=== PATIENT | female | born 1970 | race Caucasian/White ===

== ENCOUNTER 2017-09-11 14:54 | Outpatient (CLI) | payer BC ==
--- NOTE | 2017-09-17 15:27 | MMO ---
BILATERAL DIGITAL SCREENING MAMMOGRAMS: Date: 09/11/17 HISTORY: 47-year-old female presents for digital screening mammogram. COMPARISON: 07/31/16, 07/26/15, 04/01/14. FINDINGS: This patient's mammogram was interpreted with the assistance of computer-aided detection. The breasts are heterogeneously dense, which can obscure small masses. Stable typically benign calcif ications. No direct or indirect evidence of malignancy. IMPRESSION: BIRADS 2: Benign Finding(s) Continue routine screening. POS: LEON
== END 2017-09-11 14:55 | disposition home or self-care (01) ==
LOC: MAMMO 14:54
PROVIDERS: ATTEND Family Medicine
DX: Z12.31 Encounter for screening mammogram for malignant neoplasm of breast (principal)
CPT/HCPCS: 77067; G0202

== ENCOUNTER 2018-10-03 14:50 | Outpatient (CLI) | payer BC ==
--- NOTE | 2018-10-03 19:43 | ULT ---
LEFT BREAST ULTRASOUND: 10/03/18 HISTORY: Possible focal asymmetry in the left breast, only appreciated in the MLO projection, deep at the mid level of the breast. TECHNIQUE: Targeted sonographic imaging of the left breast is performed from the 2 to 4 o'clock position. Addit ional imaging was also performed in the presence of the radiologist at the 12 and 6 o'clock position. Real time and static images demonstrate normal fibroglandular tissue. No evidence of an irregular mas s, shadowing or distortion. IMPRESSION: BIRADS 3: Probably Benign Finding Initial Short-Interval Follow-Up Suggested Initial short-term follow up (usually 6-month) examination. Ultrasound if focal asymmetry persists. POS: LEON
== END 2018-10-03 14:51 | disposition home or self-care (01) ==
LOC: BICMAMMO 14:50
PROVIDERS: ATTEND Family Medicine
DX: N63.20 Unspecified lump in the left breast, unspecified quadrant (principal)
CPT/HCPCS: 77066; G0279

== ENCOUNTER 2019-06-12 13:49 | Outpatient (CLI) | payer BC ==
--- NOTE | 2019-06-17 06:45 | MMO ---
Left Breast MAMMO Unilat Diag DDI LT+BRENDA. CLINICAL HISTORY: Patient is 48 years old and is seen for screening. The patient has no family history of breast cancer. The patient has no personal history of cancer. VIEWS: The views performed were: left craniocaudal with tomosynthesis; left mediolateral oblique with tomosynthesis; and left mediolateral with tomosynthesis. FILMS COMPARED: The present examination has been compared to a prior imaging study performed at [facility] on 10/03/2018. MAMMOGRAM FINDINGS: The breast is heterogeneously dense, which could obscure a lesion on mammography. Follow-up examination was performed for the probably benign finding in the left breast seen on 10/03/2018. On the present examination, probably benign finding does not persist. There are no suspicious masses, suspicious calcifications, or new areas of architectural distortion. IMPRESSION: THERE IS NO MAMMOGRAPHIC EVIDENCE OF MALIGNANCY. PATIENT WILL BE DUE FOR BILATERAL SCREENING MAMMOGRAM IN SEP 2019; HOWEVER, DUE TO THE RECENT UNILATERAL DIAGNOSTIC FOLLOWUP, THE BILATERAL SCREENING MAMMOGRAM WILL BE RECOMMENDED IN NOV 2019. FINDING WERE DISCUSSED WITH THE PATIENT PRIOR TO HER LEAVING THE BREAST LUDELL. A ROUTINE FOLLOW-UP MAMMOGRAM IN 6 MONTHS IS RECOMMENDED. THE RESULTS OF THIS EXAM WERE SENT TO THE PATIENT. ACR BI-RADS Category 2 - Benign finding MAMMOGRAPHY NOTE: 1. A negative mammogram report should not delay a biopsy if a dominant of clinically suspicious mass is present. 2. Approximately 10% to 15% of breast cancers are not detected by mammography. 3. Adenosis and dense breasts may obscure an underlying neoplasm. Reported by: IZZY LAGUNAS MD Electonically Signed: [id number]
== END 2019-06-12 13:50 | disposition home or self-care (01) ==
LOC: BICMAMMO 13:49
PROVIDERS: ATTEND Family Medicine
DX: R92.8 Other abnormal and inconclusive findings on diagnostic imaging of breast (principal)
CPT/HCPCS: G0279

== ENCOUNTER 2021-06-02 15:05 | Outpatient (CLI) | payer BC | END 2021-06-02 15:06 | disposition home or self-care (01) | LOC: BICMAMMO 15:05 | PROVIDERS: ATTEND Family Medicine | DX: N63.14 Unspecified lump in the right breast, lower inner quadrant (principal) | CPT/HCPCS: 77066; G0279 ==

== ENCOUNTER 2021-07-05 13:02 | Outpatient (CLI) | payer BC ==
[2021-07-05 13:53] LABS: #Eosinphils 0.1 10x3/uL (0.0-0.5); #Monocytes 0.4 10x3/uL (0.0-1.1); #Neutrophils 5.6 10x3/uL (1.5-8.4); %Basophils 0.4 % (0.0-2.0); %Eosinophils 0.7 % (0.0-6.0); %Lymphocytes 13.6 % (18.0-47.0); Hemoglobin 14.9 g/dL (12.0-15.5); Mean Corpuscular Hemoglobin 30.6 pg (27.0-33.0); Mean Corpuscular Volume 89.9 fl (81.6-98.3); Mean Platelet Volume 10.5 fl (7.4-10.4); Platelet Count 241 10x3/uL (150-450); RBC Distribution Width 11.8 % (11.5-14.5); Red Blood Cell (RBC) Count 4.87 10x6/uL (3.90-5.03); White Blood Cell (WBC) Count 7.1 10x3/uL (3.5-10.5)
[2021-07-05 14:11] LABS: Anion Gap 14 mmol/L (10-20); BUN (Urea Nitrogen) 13 mg/dL (7.0-18.7); Calc. Creatinine Clearance 0 mL/min (70-130); Calcium 11.1 mg/dL (7.8-10.44); Carbon Dioxide 30 mmol/L (22-29); Chloride 101 mmol/L (98-107); Glucose 96 mg/dL (70-105); Potassium 4.5 mmol/L (3.5-5.1); Sodium 140 mmol/L (136-145)
== END 2021-07-05 13:03 | disposition home or self-care (01) ==
LOC: LABBT 13:02
PROVIDERS: ATTEND Specialist
DX: Z01.812 Encounter for preprocedural laboratory examination (principal); C50.911 Malignant neoplasm of unspecified site of right female breast
CPT/HCPCS: 80048; 85025

== ENCOUNTER 2021-07-08 07:19 | Day surgery (SDC) | payer BC ==
[2021-07-06 15:07] VITALS: BMI 20.7
[2021-07-08] MEDS ORDERED: Ketorolac Tromethamine 30 MG/ML VIAL ONE (09:03)
[2021-07-08] MEDS ORDERED: Acetaminophen 500 MG TAB ONE (09:03)
[2021-07-08] MEDS ORDERED: Midazolam HCl 2 mg/2 ml Vial ONE (11:53)
[2021-07-08] MEDS ORDERED: Fentanyl 100 MCG/2 ML VIAL ONE (11:53)
[2021-07-08] MEDS ORDERED: Isosulfan Blue 50 MG/5 ML VIAL ONE (12:04)
[2021-07-08] MEDS ORDERED: Lidocaine 1% w/Epinephrine 1:100K 30 ML VIAL ONE (12:04)
[2021-07-08] MEDS ORDERED: Bupivacaine 0.25% HCL 30 ML VIAL ONE (12:04)
[2021-07-08] MEDS ORDERED: Ondansetron PF 4 MG/2 ML Vial ONE (13:04)
[2021-07-08] MEDS ORDERED: Lidocaine 1% PF 5 ML VIAL ONE (13:04)
[2021-07-08] MEDS ORDERED: ePHEDrine 50 MG/ML VIAL ONE (13:04)
[2021-07-08] MEDS ORDERED: PHENYLEPHRINE-NS 100 MCG/ML 10 ML SYRINGE ONE (13:04)
[2021-07-08] MEDS ORDERED: Dexamethasone 20 MG/5 ML VIAL ONE (13:04)
[2021-07-08] MEDS ORDERED: PROPOFOL 200 MG/20 ML VIAL ONE (13:04)
== END 2021-07-08 16:17 | disposition home or self-care (01) ==
LOC: NM 07:19
PROVIDERS: ATTEND Specialist
PROC: 0HBT0ZZ Excision of Right Breast, Open Approach (ICD-10-PCS; principal; 2021-07-08)
PROC: 07B50ZX Excision of Right Axillary Lymphatic, Open Approach, Diagnostic (ICD-10-PCS; principal; 2021-07-08)
DX: C50.311 Malignant neoplasm of lower-inner quadrant of right female breast (principal); N60.91 Unspecified benign mammary dysplasia of right breast; Z17.0 Estrogen receptor positive status [ER+]; Z79.899 Other long term (current) drug therapy
CPT/HCPCS: 76098; 78195; 88307; 88342; A9541; J0690; J1100; J1885; J2250; J2405; J2704; J3010; J3490; Q9968; S0020

== ENCOUNTER 2021-08-02 12:56 | Outpatient (CLI) | payer BC ==
[2021-08-02 23:48] LABS: SARS-CoV-2 PCR by NAA Not Detected (NotDetected)
== END 2021-08-02 12:57 | disposition home or self-care (01) ==
LOC: LABBT 12:56
PROVIDERS: ATTEND Specialist
DX: Z01.818 Encounter for other preprocedural examination (principal); C50.911 Malignant neoplasm of unspecified site of right female breast; Z20.822 Contact with and (suspected) exposure to COVID-19
CPT/HCPCS: 93005; 93010; U0003; U0005

== ENCOUNTER 2021-08-05 10:25 | Day surgery (SDC) | payer BC ==
[2021-08-04 09:55] VITALS: BMI 21.9
[2021-08-05] MEDS ORDERED: ceFAZolin 2 GM/DEX 5% 100 ML BAG ONE (11:11)
[2021-08-05] MEDS ORDERED: Acetaminophen 500 MG TAB ONE (11:11)
[2021-08-05] MEDS ORDERED: Ketorolac Tromethamine 30 MG/ML VIAL ONE (11:11)
[2021-08-05] MEDS ORDERED: Lidocaine 1% w/Epinephrine 1:100K 20 ML VIAL ONE (12:04)
[2021-08-05] MEDS ORDERED: Bupivacaine 0.25% HCL 30 ML VIAL ONE (12:04)
[2021-08-05] MEDS ORDERED: Fentanyl 100 MCG/2 ML VIAL ONE ×2 (12:34→12:50)
[2021-08-05] MEDS ORDERED: Midazolam HCl 2 mg/2 ml Vial ONE (12:51)
[2021-08-05] MEDS ORDERED: Dexamethasone 20 MG/5 ML VIAL ONE (13:11)
[2021-08-05] MEDS ORDERED: Ondansetron PF 4 MG/2 ML Vial ONE (13:11)
== END 2021-08-05 15:10 | disposition home or self-care (01) ==
LOC: SDC 10:25
PROVIDERS: ATTEND Specialist
PROC: 02HV33Z Insertion of Infusion Device into Superior Vena Cava, Percutaneous Approach (ICD-10-PCS; principal; 2021-08-05)
DX: C50.911 Malignant neoplasm of unspecified site of right female breast (principal); Z79.899 Other long term (current) drug therapy; Z90.710 Acquired absence of both cervix and uterus; Z98.890 Other specified postprocedural states
CPT/HCPCS: 71045; C1788; J1642; J1885; J2250; J3010; S0020

== ENCOUNTER 2022-06-08 08:42 | Outpatient (CLI) | payer BC | END 2022-06-08 08:43 | disposition home or self-care (01) | LOC: BICMAMMO 08:42 → EDSEX 08:42 → BICMAMMO 08:43 | PROVIDERS: ATTEND Surgery | DX: C50.911 Malignant neoplasm of unspecified site of right female breast (principal) | CPT/HCPCS: 77066; G0279 ==